=== PATIENT | female | born 1950 | race Caucasian/White ===

== ENCOUNTER 2017-04-23 10:38 | Inpatient (IN) | payer OTHER ==
[~2017-04-23] VITALS: Ht 149.9 cm; Wt 56.0 kg
[~2017-04-23 10:38] MED LIST: ERGO1CAP35 PO; FLNIN NAE; FLUO20CA35 PO; IBUP-103 PO; MAGNSUS5 PO; OMEP40CA PO; ONDA4TAB46 PO; PRM/45 PO; SENN-65 PO; SUCR5SUS PO
[2017-04-23] MEDS ORDERED: SODIUM CHLORIDE 0.9% 1000ML 1,000 ML IV SCH ×2 (10:56→13:31)
--- NOTE | 2017-04-23 11:26 | EMERGENCY ROOM VISIT NOTE ---
History Report prepared by Rafi: Marquise Guillen Under the Supervision of: Dr. Siva Dutta M.D. First contact with patient: 10:52 Chief Complaint: STROKE SYMPTOMS Stated Complaint: LEFT ARM NUMB, DIZZY, TROUBLE W/EYES Nursing Triage Summary: pt reports she was at work this am at 0830 her fingers did not want to type anymore and started tingleing now left arm better but right hand is starting and right leg. pt reports she fell down steps. no loc and fell on to buttocks. pt speech in understandable History of Present Illness The patient is a 66 year old female who presents to the Emergency Room with complaints of improving neurologic symptoms beginning 2.5 hours ago. She states that her symptoms began while using her computer mouse at work. Her symptoms began with right arm weakness. The patient's symptoms include bilateral leg and arm tingling, lightheadedness, and bilateral ear ringing. She states that her right arm weakness has improved, and her tingling has resolved. Her ear ringing and lightheadedness has persisted. The patient denies any problems with speech, recent fevers, or headache. She states that she had a cup of coffee this morning without breakfast, which is normal for her. She notes that she felt "a little off-balance" yesterday and the day before, and had a headache at that time as well. She feels that her right leg may be weaker than her left leg currently. The patient states "my tongue feels thick in my mouth". She notes that she has been accidently taking a double dose of Wellbutrin, 600 mg, for the past three or four days. Source of History: patient Onset: 2.5 hours ago Position: arm (right) Quality: other (neurologic symptoms) Timing: other (improving) Associated Symptoms: No fevers, No headache Note: Additional symptoms include bilateral leg and arm tingling, lightheadedness, and bilateral ear ringing. She denies any problems with speech. Review of Systems See HPI for pertinent positives & negatives. A total of 10 systems reviewed and were otherwise negative. Past Medical & Surgical Medical Problems: (1) Cholecystectomy (2) Corneal transplant (3) Hysterectomy Family History No pertinent family history stated. Social History Smoking Status: Never Smoker Alcohol Use: occasionally Drug Use: none Marital Status: Housing Status: lives with family Occupation Status: employed Current/Historical Medications Scheduled Ergocalciferol (Vitamin D Cap), 50,000 INTER.UNIT PO WK Estrogens, Conjugated (Premarin), 0.45 MG PO 3XWK Fluoxetine (Prozac), 20 MG PO HS Omeprazole (Prilosec), 40 MG PO DAILY Sucralfate (Carafate), 1 GM PO BID Scheduled PRN Fluticasone Propionate (Flonase Nasal Cameron), 2 SPRAYS SATHYA DAILY PRN Ibuprofen Tab (Advil), 200-600 MG PO Q4H PRN Magnesium Hydroxide (Milk Of Magnesia), 30 ML PO HS PRN Ondansetron Hcl (Zofran), 4 MG PO Q6H PRN Senna/Docusate Sod (Senokot S), 2 TAB PO HS PRN Allergies Coded Allergies: Sulfa Drugs (Verified Adverse Reaction, Mild, NAUSEA, 01/28/13) Physical Exam Vital Signs Date Time Temp Pulse Resp B/P (MAP) Pulse Ox O2 Delivery O2 Flow Rate FiO2 04/23/17 10:57 95 04/23/17 10:41 36.7 94 18 152/88 92 Room Air Physical Exam GENERAL: Patient is in no acute distress. HEENT: No acute trauma, normocephalic atraumatic, mucous membranes moist, no nasal congestion, no scleral icterus. NECK: No stridor, no adenopathy, no meningismus, trachea is midline. LUNGS: Clear to auscultation bilaterally, no wheeze, no rhonchi, breath sounds equal. HEART: Without murmurs gallops or rubs, regular rate and rhythm. ABDOMEN: Soft, nontender, bowel sounds positive, no hernias, no peritonitis. EXTREMITIES: No cyanosis or edema, full range of motion of all the joints without pain or difficulty, no signs for acute trauma. NEUROLOGIC: Awake and alert. Oriented x3. No speech slur or facial droop. No cerebellar deficits or pronator drift. SKIN: No rash, no jaundice, no diaphoresis. Medical Decision & Procedures ER Provider Diagnostic Interpretation: CT results as stated below per my review and radiologist interpretation: CT HEAD WITHOUT CONTRAST (CT) FINDINGS: No intra or extra-axial mass lesions are visualized. There is no CT evidence of acute cortical infarction. There is no evidence of midline shift. There is no acute hemorrhage. No calvarial fractures are visualized. There are minimal white matter hypodensities likely on a small vessel basis. There is no evidence of pathologic ventricular dilatation. There is no evidence of acute sinusitis IMPRESSION: No acute intracranial findings Electronically signed by: Harry Ontiveros M.D. Laboratory Results 04/23/17 11:18 Red Blood Count 4.74, Mean Corpuscular Volume 88.2, Mean Corpuscular Hemoglobin 28.9, Mean Corpuscular Hemoglobin Concent 32.8, Mean Platelet Volume 9.8, Neutrophils (%) (Auto) 57.9, Lymphocytes (%) (Auto) 31.6, Monocytes (%) (Auto) 7.6, Eosinophils (%) (Auto) 2.2, Basophils (%) (Auto) 0.6, Neutrophils # (Auto) 3.87, Lymphocytes # (Auto) 2.12, Monocytes # (Auto) 0.51, Eosinophils # (Auto) 0.15, Basophils # (Auto) 0.04 04/23/17 11:18 Test 04/23/17 11:18 White Blood Count 6.70 K/uL (4.8-10.8) Red Blood Count 4.74 M/uL (4.2-5.4) Hemoglobin 13.7 g/dL (12.0-16.0) Hematocrit 41.8 % (37-47) Mean Corpuscular Volume 88.2 fL (80-100) Mean Corpuscular Hemoglobin 28.9 pg (25-34) Mean Corpuscular Hemoglobin Concent 32.8 g/dl (32-36) Platelet Count 543 K/uL (130-400) Mean Platelet Volume 9.8 fL (7.4-10.4) Neutrophils (%) (Auto) 57.9 % Lymphocytes (%) (Auto) 31.6 % Monocytes (%) (Auto) 7.6 % Eosinophils (%) (Auto) 2.2 % Basophils (%) (Auto) 0.6 % Neutrophils # (Auto) 3.87 K/uL (1.4-6.5) Lymphocytes # (Auto) 2.12 K/uL (1.2-3.4) Monocytes # (Auto) 0.51 K/uL (0.11-0.59) Eosinophils # (Auto) 0.15 K/uL (0-0.5) Basophils # (Auto) 0.04 K/uL (0-0.2) RDW Standard Deviation 43.5 fL (36.4-46.3) RDW Coefficient of Variation 13.5 % (11.5-14.5) Immature Granulocyte % (Auto) 0.1 % Immature Granulocyte # (Auto) 0.01 K/uL (0.00-0.02) Prothrombin Time 10.7 SECONDS (9.0-12.0) Prothromb Time International Ratio 1.0 (0.9-1.1) Activated Partial Thromboplast Time 25.4 SECONDS (21.0-31.0) Partial Thromboplastin Ratio 1.0 Anion Gap 6.0 mmol/L (3-11) Est Creatinine Clear Calc Drug Dose 42.1 ml/min Estimated GFR () 70.4 Estimated GFR (Non- 60.8 BUN/Creatinine Ratio 16.8 (10-20) Calcium Level 9.3 mg/dl (8.5-10.1) Magnesium Level 2.1 mg/dl (1.8-2.4) Total Bilirubin 0.4 mg/dl (0.2-1) Direct Bilirubin 0.1 mg/dl (0-0.2) Aspartate Amino Transf (AST/SGOT) 16 U/L (15-37) Alanine Aminotransferase (ALT/SGPT) 25 U/L (12-78) Alkaline Phosphatase 61 U/L (45-117) Total Creatine Kinase 98 U/L (26-192) Creatine Kinase MB 0.8 ng/ml (0.5-3.6) Creatine Kinase MB Ratio 0.8 (0-3.0) Troponin I < 0.015 ng/ml (0-0.045) Total Protein 7.3 gm/dl (6.4-8.2) Albumin 3.9 gm/dl (3.4-5.0) Thyroid Stimulating Hormone (TSH) 2.810 uIu/ml (0.300-4.500) Laboratory results reviewed by me. Medications Administered Medications (Trade) Dose Ordered Sig/Inez Route Start Time Stop Time Status Last Admin Dose Admin Sodium Chloride 1,000 ml @ 50 mls/hr Q20H IV 04/23/17 10:56 05/23/17 10:55 04/23/17 12:00 50 MLS/HR ECG Indication: other (neurologic symptoms) Rate (beats per minute): 85 Rhythm: normal sinus Findings: no acute ischemic change, no ectopy ED Course 1053: The patient was evaluated in room C6. A complete history and physical exam was performed. 1056: Ordered Sodium Chloride 1000 ml @ 50 mls/hr IV. 1205: Upon reexamination the patient is resting comfortably. I discussed results and treatment plan with the patient. She verbalizes agreement and understanding. The patient will be evaluated for further management. Medical Decision The patient is a 66 year old female who presents to the ED with complaints of neurologic symptoms. Differential diagnoses considered include: TIA, CVA, intracranial bleeding, medication reaction, electrolyte imbalance, anemia, and infection. Blood pressure screening: Patient was found to have a slightly elevated blood pressure due to circumstances. I do not believe that the patient requires hypertension monitoring. Medication Reconciliation: I attest that I have personally reviewed the patient' s current medication list. There is no leukocytosis or concerning anemia. No significant electrolyte abnormality, kidney failure or hepatitis. The patient appears to be in a euthyroid state. Brain CT shows no acute bleed or mass effect. EKG shows a normal sinus rhythm, no acute ischemia. Cardiac enzyme testing times one is not consistent with acute cardiac injury. On exam, the patient did not have any focal neurologic deficits. The patient presents with strokelike symptoms. She is not a candidate for TPA at his her symptoms have been ongoing since possibly this weekend. She actually may be having a reaction to her accidental increase in Wellbutrin. The patient will be staying in the hospital for further workup. I spoke with the patient and case management. The on-call hospitalist was consulted. Consults Time Called: 1202 Consulting Physician: Dr. Mukul Starks Returned Call: [phone] Discussed the patient's case. The patient will be evaluated for further management. Impression Primary Impression: Stroke-like symptoms Scribe Attestation The scribe's documentation has been prepared under my direction and personally reviewed by me in its entirety. I confirm that the note above accurately reflects all work, treatment, procedures, and medical decision making performed by me. Departure Information Dispostion Being Evaluated By Hospitalist Referrals No Doctor, Assigned (PCP) Patient Instructions My [facility] Stroke History Time Last Known Well 3 days ago Stroke t-PA Criteria Reviewed Does NOT meet criteria for t-PA Reason t-PA Not Given Contraindicated
[2017-04-23 11:31] LABS: BASO % 0.6 %; BASO ABS # 0.04 K/uL (0-0.2); COMPLETE YES; EOS % 2.2 %; HEMATOCRIT 41.8 % (37-47); IG% 0.1 %; LYMPH % 31.6 %; LYMPH ABS # 2.12 K/uL (1.2-3.4); MEAN CELL VOLUME 88.2 fL (80-100); MEAN CORPUSCULAR HEMOGLOBIN 28.9 pg (25-34); MEAN CORPUSCULAR HGB CONC 32.8 g/dl (32-36); MEAN PLATELET VOLUME 9.8 fL (7.4-10.4); MONO % 7.6 %; NEUT % 57.9 %; PLATELET COUNT 543 K/uL (130-400); RED BLOOD COUNT 4.74 M/uL (4.2-5.4)
[2017-04-23 11:39] LABS: PROTHROMBIN TIME (PATIENT) 10.7 SECONDS (9.0-12.0)
[2017-04-23 11:48] LABS: ALT/SGPT 25 U/L (12-78); BLOOD UREA NITROGEN 16 mg/dl (7-18); BUN/CREATININE RATIO 16.8 (10-20); CALCIUM 9.3 mg/dl (8.5-10.1); CARBON DIOXIDE 27 mmol/L (21-32); CHLORIDE 105 mmol/L (98-107); CREATININE 0.96 mg/dl (0.60-1.20); GLUCOSE 95 mg/dl (70-99); MAGNESIUM 2.1 mg/dl (1.8-2.4); POTASSIUM 4.2 mmol/L (3.5-5.1); SODIUM 138 mmol/L (136-145)
--- NOTE | 2017-04-23 11:53 | DIAGNOSTIC IMAGING REPORT ---
CT HEAD WITHOUT CONTRAST (CT) CLINICAL HISTORY: Stroke LEFT ARM NUMBNESS. DIZZINESS. COMPARISON STUDY: No previous studies for comparison. TECHNIQUE: Axial CT of the brain is performed from the vertex to the skull base. IV contrast was not administered for this examination. CT DOSE: 679.75 mGycm FINDINGS: No intra or extra-axial mass lesions are visualized. There is no CT evidence of acute cortical infarction. There is no evidence of midline shift. There is no acute hemorrhage. No calvarial fractures are visualized. There are minimal white matter hypodensities likely on a small vessel basis. There is no evidence of pathologic ventricular dilatation. There is no evidence of acute sinusitis IMPRESSION: No acute intracranial findings Electronically signed by: Harry Ontiveros M.D. 04/23/2017 11:52 AM Dictated Date/Time: 04/23/2017 11:51 AM
[2017-04-23 12:00] LABS: ALKALINE PHOSPHATASE 61 U/L (45-117); AST/SGOT 16 U/L (15-37); CKMB/CK RATIO 0.8 (0-3.0)
[2017-04-23] MEDS ORDERED: IV FLUIDS COMPLETED PRN (12:45)
[2017-04-23] MEDS ORDERED: ERGO500037 PO (13:29)
[2017-04-23] MEDS ORDERED: FLUO40CA8 PO (13:29)
[2017-04-23] MEDS ORDERED: FLUT0.15 NAE (13:29)
[2017-04-23] MEDS ORDERED: BUPRTAB51 PO (13:29)
[2017-04-23] MEDS ORDERED: SUCR1TAB29 PO (13:29)
[2017-04-23] MEDS ORDERED: PRM/45 PO (13:29)
[2017-04-23] MEDS ORDERED: MISCCAP80 PO (13:29)
[2017-04-23] MEDS ORDERED: CYCL0.052 OP (13:29)
[2017-04-23] MEDS ORDERED: ACETAMINOPHEN 325 MG TAB PO PRN (13:30)
[2017-04-23] MEDS ORDERED: ONDANSETRON INJ 2 MG/ML 2 ML VIAL IV PRN (13:30)
[2017-04-23] MEDS ORDERED: ASPIRIN 81 MG ECTAB PO ONE ×2 (13:31→14:45)
[2017-04-23] MEDS ORDERED: PHARMACIST DISCHARGE MED REC CONSULT PRN (13:45)
[2017-04-23] MEDS ORDERED: LORAZEPAM 2 MG/ML 1 ML VIAL IV PRN (13:45)
[2017-04-23 13:49] VITALS: BP 152/88; TEMP 36.7; Ht 149.9 cm; Wt 56.0 kg
[2017-04-23] MEDS ORDERED: ZOLPIDEM TARTRATE 5 MG TAB PO PRN (14:00)
[2017-04-23 14:14] VITALS: BP 149/93; PULSE 82; TEMP 36.6; O2SAT 98
[2017-04-23] MEDS ORDERED: PNEUMOCOCCAL POLYSACCHARIDES 25 MCG/0.5 ML VIAL/SYR IM. ONE (14:30)
[2017-04-23] MEDS ORDERED: PNEUMOCOCCAL ADMINISTRATION CHARGE ONE (14:30)
--- NOTE | 2017-04-23 14:35 | History and Physical ---
History & Physical Date & Time of Service: Apr 23, 2017 at 14:10 Chief Complaint: Right Arm Numb, Dizzy, Trouble W/Eyes Primary Care Physician: Ligia Del Cid D.O. History of Present Illness Source: patient, friend This is a 66yo F with a PMH of HLD, depression and vitamin D deficiency who presented to the ED with numbness, tingling and weakness in her R arm. Symptoms began while she was at work this AM around 0800 when typing at her desk When she got up to use the restroom, she noticed a similar sensation of numbness/ tinging in both of her legs below the knee but was still able to ambulate. Around this time, she also noticed a "dizziness" while walking as well as bilateral ringing of the ears and a "thickness of the tongue" that made it difficult to swallow. Of note, she states that she began experiencing difficulty "walking in a straight line" earlier this week, at which time she was also experiencing a 3-day headache. All other symptoms started this morning. By the time she was seen in the ED, all symptoms had resolved with the exception of intermittent numbness/tinging and a feeling of weakness in her R arm. No PMH of CVA, heart disease or migraines. Denies any confusion, headache , LOC, seizure, syncopal episodes, loss of balance, speech problems, visual disturbance, tinnitus, CP, dyspnea or nausea/vomiting at this time. Patient notes that she has been experiencing intermittent episodes of diarrhea for the past 2 weeks that are associated with a few minutes of lower abdominal pain. She also has been taking a double dose of Wellbutrin (600mg/day) for the past 4 days by mistake. Past Medical/Surgical History Medical Problems: (1) Depression Status: Chronic (2) Dyslipidemia Status: Chronic Surgical Problems: (1) H/O oral surgery Permanent Comment: for lymph gland excision Status: Chronic (2) History of corneal transplant Status: Chronic (3) History of hysterectomy Status: Chronic (4) S/P cholecystectomy Status: Chronic Family History Cardiac disorder FATHER FH: cancer SISTER (cervical) MOTHER (bladder) BROTHER (non hodgkins lymphoma) FH: migraine headache SISTER FH: thyroid disease SISTER Social History Smoking Status: Light Tobacco Smoker (has 1 cigarette every night) Smokeless Tobacco Use: No Alcohol Use: occasionally (1 glass of wine a week) Drug Use: none Marital Status: Occupational Status: employed Immunizations History of Influenza Vaccine: Unknown History of Tetanus Vaccine?: Unknown History of Pneumococcal: Unknown History of Hepatitis B Vaccine: Unknown Multi-Drug Resistant Organisms History of MDRO: No Allergies Coded Allergies: Sulfa Drugs (Verified Adverse Reaction, Mild, NAUSEA, 01/28/13) Home Medications Scheduled Bupropion (Wellbutrin-Xl), 300 MG PO DAILY Cyclosporine (Ophth) (Restasis), 1 DROP OP Q12 Ergocalciferol (Vitamin D 86034 Unit), 50,000 UNIT PO WK Estrogens, Conjugated (Premarin), 0.45 MG PO DAILY Fluoxetine (Prozac), 40 MG PO DAILY Fluticasone Propionate (Nasal) (Flonase Allergy Relief), 2 SPRAYS SATHYA DAILY Probiotic Product (Probiotic), 1 CAP PO TIDM Sucralfate (Carafate), 1 GM PO ACHS Review of Systems ROS per HPI. Physical Exam Vital Signs Date Time Temp Pulse Resp B/P (MAP) Pulse Ox O2 Delivery O2 Flow Rate FiO2 04/23/17 13:52 77 18 146/78 98 04/23/17 13:49 36.7 18 152/88 Room Air 04/23/17 10:57 95 04/23/17 10:41 36.7 94 18 152/88 92 Room Air General Appearance: WD/WN, no apparent distress Head: normocephalic Eyes: PERRL, EOMI ENT: normal ENT inspection Neck: supple, thyroid normal Respiratory/Chest: chest non-tender, lungs clear, normal breath sounds, no respiratory distress, no accessory muscle use Cardiovascular: regular rate, rhythm, normal peripheral pulses Abdomen/GI: normal bowel sounds, soft, + tenderness (Moderate TTP in LLQ ) Back: normal inspection Extremities/Musculoskelatal: normal inspection, normal range of motion 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 ) Skin: normal color, warm/dry Lymphatic: no adenopathy Diagnostics Laboratory Results Results Past 24 Hours Test 04/23/17 11:18 04/23/17 13:31 04/23/17 13:33 04/23/17 13:56 Range/Units White Blood Count 6.70 4.8-10.8 K/uL Red Blood Count 4.74 4.2-5.4 M/uL Hemoglobin 13.7 12.0-16.0 g/dL Hematocrit 41.8 37-47 % Mean Corpuscular Volume 88.2 80-100 fL Mean Corpuscular Hemoglobin 28.9 25-34 pg Mean Corpuscular Hemoglobin Concent 32.8 32-36 g/dl Platelet Count 543 130-400 K/uL Mean Platelet Volume 9.8 7.4-10.4 fL Neutrophils (%) (Auto) 57.9 % Lymphocytes (%) (Auto) 31.6 % Monocytes (%) (Auto) 7.6 % Eosinophils (%) (Auto) 2.2 % Basophils (%) (Auto) 0.6 % Neutrophils # (Auto) 3.87 1.4-6.5 K/uL Lymphocytes # (Auto) 2.12 1.2-3.4 K/uL Monocytes # (Auto) 0.51 0.11-0.59 K/uL Eosinophils # (Auto) 0.15 0-0.5 K/uL Basophils # (Auto) 0.04 0-0.2 K/uL RDW Standard Deviation 43.5 36.4-46.3 fL RDW Coefficient of Variation 13.5 11.5-14.5 % Immature Granulocyte % (Auto) 0.1 % Immature Granulocyte # (Auto) 0.01 0.00-0.02 K/uL Prothrombin Time 10.7 9.0-12.0 SECONDS Prothromb Time International Ratio 1.0 0.9-1.1 Activated Partial Thromboplast Time 25.4 21.0-31.0 SECONDS Partial Thromboplastin Ratio 1.0 Sodium Level 138 136-145 mmol/L Potassium Level 4.2 3.5-5.1 mmol/L Chloride Level 105 98-107 mmol/L Carbon Dioxide Level 27 21-32 mmol/L Anion Gap 6.0 3-11 mmol/L Blood Urea Nitrogen 16 7-18 mg/dl Creatinine 0.96 0.60-1.20 mg/dl Est Creatinine Clear Calc Drug Dose 42.1 ml/min Estimated GFR () 70.4 Estimated GFR (Non- 60.8 BUN/Creatinine Ratio 16.8 10-20 Random Glucose 95 70-99 mg/dl Calcium Level 9.3 8.5-10.1 mg/dl Magnesium Level 2.1 1.8-2.4 mg/dl Total Bilirubin 0.4 0.2-1 mg/dl Direct Bilirubin 0.1 0-0.2 mg/dl Aspartate Amino Transf (AST/SGOT) 16 15-37 U/L Alanine Aminotransferase (ALT/SGPT) 25 12-78 U/L Alkaline Phosphatase 61 45-117 U/L Total Creatine Kinase 98 26-192 U/L Creatine Kinase MB 0.8 0.5-3.6 ng/ml Creatine Kinase MB Ratio 0.8 0-3.0 Troponin I < 0.015 0-0.045 ng/ml Total Protein 7.3 6.4-8.2 gm/dl Albumin 3.9 3.4-5.0 gm/dl Thyroid Stimulating Hormone (TSH) 2.810 0.300-4.500 uIu/ml Test 04/23/17 14:09 Range/Units Diagnostic Radiology CT HEAD WITHOUT CONTRAST (CT) (04/23/17): No intra or extra-axial mass lesions are visualized. There is no CT evidence of acute cortical infarction. There is no evidence of midline shift. There is no acute hemorrhage. No calvarial fractures are visualized. There are minimal white matter hypodensities likely on a small vessel basis. There is no evidence of pathologic ventricular dilatation. There is no evidence of acute sinusitis Normal EKG Impression Assessment and Plan Pt is a 66yo F with a PMH of HLD, depression and vitamin D deficiency who presents with stroke-like symptoms. Stroke-like symptoms: -Slight R drooping of the mouth noted on exam but all other CN function intact -Endorses numbness, tingling and weakness of R arm and bilateral legs however, on exam, sensation & motor function intact as well as full MOMO of both upper & lower extremities -CT head without any acute abnormalities, normal ECG, all labwork wnl -Only risk factors are HLD (denies statin therapy) and mild tobacco use (1 cigarette each night) -will continue with a stroke rule-out despite diagnostics & labwork all wnl -ordered MRI brain without contrast, MRA head and neck without contrast, Echo with bubble study -started on ASA 81mg qAM -ordered hgb a1c and fasting lipid panel for tomorrow AM. Will start statin therapy if indicated -PT/OT/speech consults ordered Numbness in R arm/legs: -Seems to be intermittent on exam and improves with movement -Thyroid levels are normal -Ordered a B12 level to r/o deficiency Accidental doubling of Wellbutrin: -Endorses 4 days of taking 600mg daily instead of 300mg -Does not seem to exhibit any signs/symptoms of wellbutrin overdose (confusion, tremor, seizures, prolonged QTc) -Will return to normal wellbutrin dose Depression: stable -continue home meds Vit D deficiency: -continue home meds VTA ppx: Lovenox Inj 40mg daily Code status: FULL Dispo: pending Level of Care Telemetry Advanced Directives Existing Living Will: No Existing Power of Warp Tester: No Resuscitation Status FULL RESUSCITATION VTE Prophylaxis VTE Risk Assessment Done? Y/N: Yes Risk Level: Moderate Given or contraindicated: Enoxaparin (Lovenox)SQ
[2017-04-23 14:55] LABS: URINE APPEARANCE CLEAR (CLEAR); URINE BILIRUBIN NEG (NEG); URINE COLOR YELLOW; URINE NITRITE NEG (NEG); URINE SPECIFIC GRAVITY 1.012 (1.000-1.030); UROBILINOGEN NEG (NEG); ZZUR CULT IF INDIC CLEAN CATCH YES
[2017-04-23 15:05] LABS: MANUAL MICROSCOPIC REQUIRED? NO; REVIEW REQ? NO
--- NOTE | 2017-04-23 15:07 | History and Physical ---
History & Physical Date of Service Apr 23, 2017. History & Physical This is a 66 year old female with a PMH of HLD, depression/anxiety presents with vague symptoms, including lightheadedness - states that for the past week she felt lightheaded and has been drifting to one side while ambulating. She noticed this intermittently but thought she was doing it because of the lightheaded feeling. She woke up at around 8AM and states that she felt numbness /tingling in her arms, and felt it more on the R hand. She became worried and presented to the ER. Currently, numbness/tingling is intermittent and in both hands. Denies slurring of speech. She states that her dose of Wellbutrin was recently changed from 150mg to 300mg daily - she was accidentally taking 600mg for the past four days. VITALS: Last Vital Signs Documentation Date Time Temp Pulse Resp B/P (MAP) Pulse Ox O2 Delivery O2 Flow Rate FiO2 04/23/17 14:14 36.6 82 18 149/93 (111) 98 Room Air GEN: no acute distress HEENT: mild asymmetry noted; R sided slightly lower than L CVS: +S1, S2, RRR LUNGS: CTA b/l, no wheezing ABD: soft, NT/ND EXT: no edema NEURO: CN II-XII grossly intact Numbness/Tingling unlikely CVA, Head CT negative will check a Brain MRI, MRA of head/neck TSH wnl check B12 check an echo monitor in tele check fasting lipid panel and Ha1c for risk stratification started on aspirin 81mg and should continue this for CV prevention will likely need a statin, check lipid panel in AM may need outpatient neuro evaluation for EMG, NCV; possibly C-spine imaging Depression/Anxiety patient accidentally taking Wellbutrin 600mg x4 days will go back to Prozac and Wellbutrin 300mg daily EKG checked, no prolonged QT her symptoms of lightheadedness and dizziness possibly related to overdose DVT ppx Lovenox FULL CODE
[2017-04-23 15:16] LABS: ESTIMATED AVERAGE GLUCOSE 114 mg/dl; HA1C FLAG Normal (Normal)
[2017-04-23 16:00] VITALS: O2SAT 98
[2017-04-23] MEDS ORDERED: ENOXAPARIN 40 MG/0.4 ML SYR SC SCH (16:00)
[2017-04-23] MEDS: SUCRALFATE 1 GM TAB PO SCH ×2 (16:50→22:02)
[2017-04-23 17:01] VITALS: BP 131/80; PULSE 92; TEMP 36.5; O2SAT 98
--- NOTE | 2017-04-23 17:21 | ECHOCARDIOGRAM REPORT ---
*NOTICE TO RECEIVING REPUBLICAN AGENCY This information is strictly Confidential and protected under [place] law. [place] law prohibits you from making any further disclosure of this information unless further disclosure is expressly permitted by the written consent of the person to whom it pertains or is authorized by law. A general authorization for the release of medical or other information is not sufficient for this purpose. Hospital accepts no responsibility if the information is made available to any other person, INCLUDING THE PATIENT. Interpretation Summary * Name: KIAN HASSAN Study Date: 04/23/2017 02:40 PM * Patient Location: [facility]\S\E219\S\1 * : 1950 (M/d/yyyy) Gender: Female Height: 59 in * Age: 66 yrs Ethnicity: [place] Weight: 119 lb * Ordering Physician: Korin Ortez * Referring Physician: Self, Referred * Performed By: Obed Reynolds RCS * * Reason For Study: Stroke * BSA: 1.5 m2 * The study was technically adequate. * There is no comparison study available. * -- Conclusions -- * Ejection Fraction = 60-65%. * The left ventricular wall motion is normal. * Grade I diastolic dysfunction, (abnormal relaxation pattern). * The right ventricle is normal size. * There is mild right ventricular hypertrophy. * The right ventricular systolic function is normal as assessed by tricuspid annular plane systolic excursion (TAPSE) (normal >1.5 cm). * Injection of contrast documented no interatrial shunt. * No significant valvular pathology. Procedure Details * A complete two-dimensional transthoracic echocardiogram was performed (2D, M-mode, Doppler and color flow Doppler). Left Ventricle * The left ventricle is normal in size. * There is no thrombus. * There is normal left ventricular wall thickness. * Ejection Fraction = 60-65%. * Left ventricular systolic function is normal. * The left ventricular wall motion is normal. Right Ventricle * The right ventricle is normal size. * There is mild right ventricular hypertrophy. * The right ventricular systolic function is normal as assessed by tricuspid annular plane systolic excursion (TAPSE) (normal >1.5 cm). Atria * The left atrial size is normal. * Right atrial size is normal. * There is no evidence of atrial septal defect, but resolution does not allow assessment for a patent foramen ovale. * Injection of contrast documented no interatrial shunt. Mitral Valve * The mitral valve is normal. * There is no mitral valve stenosis. * Significant mitral regurgitation is absent. Tricuspid Valve * The tricuspid valve is normal. * There is no tricuspid stenosis. * There is trace tricuspid regurgitation. Aortic Valve * The aortic valve is not well visualized. * Aortic stenosis is absent. * There is no significant aortic regurgitation. Pulmonic Valve * The pulmonary valve is not well seen, but the Doppler examination is normal without significant regurgitation or stenosis. Great Vessels * The aortic root is normal size. Pericardium/Pleural * There is no pericardial effusion. Great Vessels * Normal inferior vena cava diameter and respiratory variation suggests normal central venous pressure. Left Ventricular Diastolic Function * Grade I diastolic dysfunction, (abnormal relaxation pattern). MMode 2D Measurements and Calculations IVSd 0.84 cm LVIDd 4.1 cm LVIDs 2.6 cm LVPWd 0.85 cm IVS/LVPW 0.99 FS 36.5 % EDV(Teich) 76.3 ml ESV(Teich) 25.4 ml EF(Teich) 66.7 % EDV(cubed) 71.3 ml ESV(cubed) 18.3 ml EF(cubed) 74.4 % LV mass(C)d 106.3 grams LV mass(C)dI 71.8 grams/m\S\2 SV(Teich) 50.8 ml SI(Teich) 34.4 ml/m\S\2 SV(cubed) 53.0 ml SI(cubed) 35.9 ml/m\S\2 LVAd ap4 18.6 cm\S\2 LVLd ap4 7.3 cm EDV(MOD-sp4) 40.8 ml EDV(sp4-el) 40.3 ml LVAs ap4 9.5 cm\S\2 LVLs ap4 5.7 cm ESV(MOD-sp4) 13.7 ml ESV(sp4-el) 13.4 ml EF(MOD-sp4) 66.5 % EF(sp4-el) 66.8 % LVAd ap2 19.0 cm\S\2 LVLd ap2 6.5 cm EDV(MOD-sp2) 47.3 ml EDV(sp2-el) 47.2 ml LVAs ap2 10.0 cm\S\2 LVLs ap2 5.8 cm ESV(MOD-sp2) 15.0 ml ESV(sp2-el) 14.8 ml EF(MOD-sp2) 68.2 % EF(sp2-el) 68.6 % LVLd %diff -11.16 % EDV(MOD-bp) 45.9 ml LVLs %diff 0.48 % ESV(MOD-bp) 14.4 ml EF(MOD-bp) 68.6 % SV(MOD-sp4) 27.2 ml SI(MOD-sp4) 18.4 ml/m\S\2 SV(MOD-sp2) 32.2 ml SI(MOD-sp2) 21.8 ml/m\S\2 SV(MOD-bp) 31.5 ml SI(MOD-bp) 21.3 ml/m\S\2 SV(sp4-el) 27.0 ml SI(sp4-el) 18.2 ml/m\S\2 SV(sp2-el) 32.3 ml SI(sp2-el) 21.9 ml/m\S\2 Doppler Measurements and Calculations MV E max sara 72.7 cm/sec MV A max sara 106.1 cm/sec MV E/A 0.69 MV dec time 0.06 sec Ao V2 max 122.0 cm/sec Ao max PG 5.9 mmHg Ao max PG (full) 3.1 mmHg LV V1 max PG 2.8 mmHg LV V1 max 83.7 cm/sec
[2017-04-23 19:54] VITALS: BP 126/81; PULSE 86; TEMP 36.7; O2SAT 96
[2017-04-23 20:00] VITALS: O2SAT 96
[2017-04-23] MEDS ORDERED: LORAZEPAM 2 MG/ML 1 ML VIAL ONE (22:13)
[2017-04-24] VITALS (8 sets, daily range): BP systolic 110–131; BP diastolic 70–84; PULSE 88–100; TEMP 36.6–36.8; O2SAT 96–97
[2017-04-24] MEDS ORDERED: GADAVIST IV PRN
[2017-04-24 06:26] LABS: BASO % 0.5 %; BASO ABS # 0.03 K/uL (0-0.2); COMPLETE YES; EOS % 3.1 %; HEMATOCRIT 34.9 % (37-47); IG% 0.3 %; LYMPH % 30.3 %; LYMPH ABS # 1.88 K/uL (1.2-3.4); MEAN CELL VOLUME 88.6 fL (80-100); MEAN CORPUSCULAR HEMOGLOBIN 29.7 pg (25-34); MEAN CORPUSCULAR HGB CONC 33.5 g/dl (32-36); MEAN PLATELET VOLUME 9.8 fL (7.4-10.4); NEUT % 55.8 %; PLATELET COUNT 446 K/uL (130-400); RED BLOOD COUNT 3.94 M/uL (4.2-5.4)
--- NOTE | 2017-04-24 06:48 | DIAGNOSTIC IMAGING REPORT ---
MRA NECK COMBO HISTORY: Mental status change Stroke TECHNIQUE: [id number] and gadolinium-enhanced MRA of the neck was performed both before and after the intravenous administration of contrast. All measurements were calculated based on NASCET criteria. COMPARISON STUDY: None. FINDINGS: The aortic arch and proximal great vessels are widely patent. There is no significant stenosis, occlusion, or dissection identified within the bilateral common carotid, internal carotid, or vertebral arteries. Mild plaque formation bilaterally. Motion artifact partially degrading image quality IMPRESSION: No significant stenosis, occlusion, or dissection identified within the carotid or vertebral arteries. Mild plaque formation The above report was generated using voice recognition software. It may contain grammatical, syntax or spelling errors. Electronically signed by: Xiang Stone M.D. 04/24/2017 6:47 AM Dictated Date/Time: 04/24/2017 6:45 AM
--- NOTE | 2017-04-24 06:51 | DIAGNOSTIC IMAGING REPORT ---
MRA HEAD WITHOUT CONTRAST CLINICAL HISTORY: 66 years-old Female presenting with Stroke - Attention to [facility]. TECHNIQUE: MR angiography of the head was performed without use of intravenous contrast using a 3-D [id number] technique. 3-D volumetric tumble views were subsequently created for review. IV contrast: None. COMPARISON: Correlation made with MRI of the brain performed simultaneously. FINDINGS: In the anterior circulation, bilateral intracranial portions of the internal carotid arteries are patent. Anterior and middle cerebral arteries patent. Evaluation for stenoses slightly limited due to motion artifact. Anterior communicating artery patent. Posterior communicating arteries not visible. In the posterior circulation, predominance of the vertebral arteries. Vertebrobasilar system patent as is the superior cerebellar and posterior cerebral arteries. No evidence of significant stenosis, aneurysm, or vessel occlusion within limitations of motion artifact. IMPRESSION: 1. No evidence of significant stenosis, aneurysm, or vessel occlusion within limitations of motion artifact. Electronically signed by: Ishan Eaton M.D. 04/24/2017 6:49 AM Dictated Date/Time: 04/24/2017 6:44 AM
[2017-04-24] MEDS: SUCRALFATE 1 GM TAB PO SCH ×2 (07:00→11:00)
[2017-04-24 07:01] LABS: BUN/CREATININE RATIO 14.9 (10-20); CALCIUM 8.1 mg/dl (8.5-10.1); CREATININE 0.9 mg/dl (0.60-1.20); POTASSIUM 3.8 mmol/L (3.5-5.1)
[2017-04-24 07:02] LABS: CHOLESTEROL/HDL RATIO 4.4
--- NOTE | 2017-04-24 07:37 | DIAGNOSTIC IMAGING REPORT ---
BRAIN WITHOUT CONTRAST HISTORY: 66 years Female acute strokelike symptoms with right arm numbness and blurred vision. History of prior corneal transplants. COMPARISON: CT head 04/23/2017 TECHNIQUE: Multiplanar multisequence MRI of the brain was obtained without contrast. FINDINGS: There is no restricted diffusion to suggest acute ischemia. Midline structures including the corpus callosum, brainstem, optic chiasm, pituitary gland and peroneal gland appear unremarkable the sagittal T1 series. There is no cerebellar tonsillar herniation. Uncovertebral spurring is seen within the imaged upper cervical spine. There is 3 mm anterolisthesis of C3 on C4 which may be on a degenerative basis as there is underlying facet arthropathy at this interspace, moderate on the left and mild on the right. No pathologic susceptibility artifact identified. There is no acute intracranial hemorrhage, midline shift, abnormal extra-axial collections, hydrocephalus or intracranial mass. No significant T-2/flair signal abnormality within the cerebral hemispheres. Flow-voids flow skull base appear to be within normal limits. There is a trace left mastoid effusion. Mild ethmoid sinus disease is present. Orbits appear symmetric. IMPRESSION: 1. No acute intracranial abnormality. No evidence of acute ischemia. 2. Incidental note is made of 3 mm anterolisthesis C3 on C4 which may be on a degenerative basis as there is underlying moderate left-sided facet arthropathy at this interspace. 3. Trace left mastoid effusion. The above report was generated using voice recognition software. It may contain grammatical, syntax or spelling errors. Electronically signed by: Franck Gaytan M.D. 04/24/2017 7:35 AM Dictated Date/Time: 04/24/2017 7:29 AM
[2017-04-24] MEDS ORDERED: FLUOXETINE HCL 20 MG CAP PO SCH (09:00)
[2017-04-24] MEDS ORDERED: ASPIRIN 81 MG ECTAB PO SCH (09:00)
[2017-04-24] MEDS ORDERED: BuPROPion XL 300 MG TABCR PO SCH (09:00)
[2017-04-24] MEDS ORDERED: NURSING VERBAL MED ORDER ONE (10:30)
--- NOTE | 2017-04-24 13:15 | Progress Note ---
Internal Med Progress Note Date of Service: Apr 24, 2017. Provider Documentation: SUBJECTIVE: Patient is feeling much better than on presentation. Dizziness/lightheadedness has improved. Ambulated well with PT though still has some mild lightheadedness. Intermittent numbness/tingling in both extremities present. No headaches, nausea, vomiting, localized weakness present OBJECTIVE: Vital Signs-as noted below Exam: GEN: no acute distress CVS: +S1, S2, RRR LUNGS: CTA b/l, no wheezing ABD: soft, NT/ND EXT: no edema NEURO: CN II-XII normal, Power 5/5 all extremities, Sensory normal b/l Lab data as noted below. ASSESSMENT & PLAN: Numbness/Tingling, Intermittent Likely secondary to C3-C4 degenerative changes noted co incidentally on MRI . Unlikely to be TIA or stroke -Work up- MRI Brain- No stroke, MRA Head/neck- no acute abnormalities/stenosis noted, TSH- Normal, Vitamin B12- normal; Echo- EF 60-65%, Gd I diastolic dysfunction, Mild RVH, No valvular pathology, Tele- no arrhythmias noted -No indication of starting ASA as clinically and on basis of history TIA unlikely, no cardiovascular risk factors present and MRI is negative for stroke -Follow up outpatient Dizziness Could be secondary to accidently taking Wellbutrin double dosing -600 mg x 4 days -Improved -Work up as above-negative Depression/Anxiety -Wellbutrin to be restarted from tomorrow at original dose 300 mg DVT ppx Lovenox FULL CODE DISPOSITION Okay to discharge home today Discussed results with patient/daughter Vital Signs: Date Time Temp Pulse Resp B/P (MAP) Pulse Ox O2 Delivery O2 Flow Rate FiO2 04/24/17 11:40 36.8 100 18 122/80 (94) 97 04/24/17 08:00 Room Air 04/24/17 07:51 36.8 88 18 126/81 (96) 96 Room Air 04/24/17 04:30 96 Room Air 04/24/17 03:21 36.6 94 19 110/70 (83) 97 Room Air 04/24/17 00:33 36.7 88 19 119/79 (92) 96 Room Air 04/24/17 00:30 96 Room Air 04/23/17 20:00 96 Room Air 04/23/17 19:54 36.7 86 20 126/81 (96) 96 Room Air 04/23/17 17:01 36.5 92 18 131/80 (97) 98 Room Air 04/23/17 16:00 98 Room Air 04/23/17 14:14 36.6 82 18 149/93 (111) 98 Room Air 04/23/17 13:52 77 18 146/78 98 04/23/17 13:49 36.7 18 152/88 Room Air Lab Results: Results Past 24 Hours Test 04/23/17 14:09 04/23/17 14:20 04/24/17 05:50 Range/Units Urine Color YELLOW Urine Appearance CLEAR CLEAR Urine pH 7.0 4.5-7.5 Urine Specific Bath 1.012 1.000-1.030 Urine Protein NEG NEG Urine Glucose (UA) NEG NEG Urine Ketones NEG NEG Urine Occult Blood 1+ NEG Urine Nitrite NEG NEG Urine Bilirubin NEG NEG Urine Urobilinogen NEG NEG Urine Leukocyte Esterase NEG NEG Urine WBC (Auto) 1-5 0-5 /hpf Urine RBC (Auto) 0-4 0-4 /hpf Urine Hyaline Casts (Auto) 1-5 0-5 /lpf Urine Epithelial Cells (Auto) 10-20 0-5 /lpf Urine Bacteria (Auto) 1+ NEG Vitamin B12 Level 871 211-911 pg/mL Hepatitis C Antibody Screen NEG NEG White Blood Count 6.20 4.8-10.8 K/uL Red Blood Count 3.94 4.2-5.4 M/uL Hemoglobin 11.7 12.0-16.0 g/dL Hematocrit 34.9 37-47 % Mean Corpuscular Volume 88.6 80-100 fL Mean Corpuscular Hemoglobin 29.7 25-34 pg Mean Corpuscular Hemoglobin Concent 33.5 32-36 g/dl Platelet Count 446 130-400 K/uL Mean Platelet Volume 9.8 7.4-10.4 fL Neutrophils (%) (Auto) 55.8 % Lymphocytes (%) (Auto) 30.3 % Monocytes (%) (Auto) 10.0 % Eosinophils (%) (Auto) 3.1 % Basophils (%) (Auto) 0.5 % Neutrophils # (Auto) 3.46 1.4-6.5 K/uL Lymphocytes # (Auto) 1.88 1.2-3.4 K/uL Monocytes # (Auto) 0.62 0.11-0.59 K/uL Eosinophils # (Auto) 0.19 0-0.5 K/uL Basophils # (Auto) 0.03 0-0.2 K/uL RDW Standard Deviation 43.6 36.4-46.3 fL RDW Coefficient of Variation 13.3 11.5-14.5 % Immature Granulocyte % (Auto) 0.3 % Immature Granulocyte # (Auto) 0.02 0.00-0.02 K/uL Sodium Level 142 136-145 mmol/L Potassium Level 3.8 3.5-5.1 mmol/L Chloride Level 111 98-107 mmol/L Carbon Dioxide Level 25 21-32 mmol/L Anion Gap 6.0 3-11 mmol/L Blood Urea Nitrogen 13 7-18 mg/dl Creatinine 0.90 0.60-1.20 mg/dl Est Creatinine Clear Calc Drug Dose 45.7 ml/min Estimated GFR () 76.1 Estimated GFR (Non- 65.7 BUN/Creatinine Ratio 14.9 10-20 Random Glucose 86 70-99 mg/dl Calcium Level 8.1 8.5-10.1 mg/dl Triglycerides Level 273 0-150 mg/dl Cholesterol Level 210 0-200 mg/dl HDL Cholesterol 48 mg/dl LDL Cholesterol, Calculated 107 mg/dl VLDL Cholesterol, Calculated 55 mg/dl Cholesterol/HDL Ratio 4.4 Microbiology Results 04/23/17 Urine Culture - Preliminary, Resulted NO GROWTH - LESS THAN 1,000 COLONIES/...
--- NOTE | 2017-04-24 13:19 | Discharge Summary ---
Discharge Summary Date of Service Apr 24, 2017. Discharge Summary Admission Date: Apr 23, 2017 at 18:52 Discharge Date: Apr 24, 2017 Discharge Disposition: Home Principal Diagnosis: 1. Intermittent numbness/tingling in upper extremities, likely secondary to C3- C4 arthropathy 2. Dizziness, likely secondary to medication side effect Secondary Diagnoses/Problems: 1. Depression/Anxiety Procedures: Tele monitoring MRI brain MRA Head/neck Echocardiogram IV Fluids PT Consultations: None Pending Studies/Follow-Up: Instructions / Follow-Up Instructions / Follow-Up MEDICATION CHANGES: Okay to restart Wellbutrin at your home dose of 300 mg from tomorrow FOLLOW UP 1. Follow up with Dr Colunga 04/27/17 at 10:45 AM Medication Reconciliation Continued Medications: Bupropion (Wellbutrin-Xl) 300 Mg Tabcr 300 MG PO DAILY Cyclosporine (Ophth) (Restasis) 0.05 % Emu 1 DROP OP Q12 Ergocalciferol (Vitamin D 15965 Unit) 50,000 Unit Cap 51539 UNIT PO WK Estrogens, Conjugated (Premarin) 0.45 Mg Tab 0.45 MG PO DAILY Fluoxetine (Prozac) 40 Mg Cap 40 MG PO DAILY Fluticasone Propionate (Nasal) (Flonase Allergy Relief) 50 Mcg/Act Spr 2 SPRAYS SATHYA DAILY Probiotic Product (Probiotic) 1 Cap Cap 1 CAP PO TIDM Sucralfate (Carafate) 1 Gm Tab 1 GM PO ACHS 4 TIMES DAILY BEFORE MEALS AND AT BEDTIME. Admission Information HPI (per Admitting provider): This is a 66yo F with a PMH of HLD, depression and vitamin D deficiency who presented to the ED with numbness, tingling and weakness in her R arm. Symptoms began while she was at work this AM around 0800 when typing at her desk When she got up to use the restroom, she noticed a similar sensation of numbness/ tinging in both of her legs below the knee but was still able to ambulate. Around this time, she also noticed a "dizziness" while walking as well as bilateral ringing of the ears and a "thickness of the tongue" that made it difficult to swallow. Of note, she states that she began experiencing difficulty "walking in a straight line" earlier this week, at which time she was also experiencing a 3-day headache. All other symptoms started this morning. By the time she was seen in the ED, all symptoms had resolved with the exception of intermittent numbness/tinging and a feeling of weakness in her R arm. No PMH of CVA, heart disease or migraines. Denies any confusion, headache , LOC, seizure, syncopal episodes, loss of balance, speech problems, visual disturbance, tinnitus, CP, dyspnea or nausea/vomiting at this time. Patient notes that she has been experiencing intermittent episodes of diarrhea for the past 2 weeks that are associated with a few minutes of lower abdominal pain. She also has been taking a double dose of Wellbutrin (600mg/day) for the past 4 days by mistake. 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 ) Skin: normal color, warm/dry Lymphatic: no adenopathy Hospital Course Numbness/Tingling, Intermittent Likely secondary to C3-C4 degenerative changes noted co incidentally on MRI . Unlikely to be TIA or stroke -Work up- MRI Brain- No stroke, MRA Head/neck- no acute abnormalities/stenosis noted, TSH- Normal, Vitamin B12- normal; Echo- EF 60-65%, Gd I diastolic dysfunction, Mild RVH, No valvular pathology, Tele- no arrhythmias noted -No indication of starting ASA as clinically and on basis of history TIA unlikely, no cardiovascular risk factors present and MRI is negative for stroke -Follow up outpatient Dizziness Could be secondary to accidently taking Wellbutrin double dosing -600 mg x 4 days -Improved -Work up as above-negative Depression/Anxiety -Wellbutrin to be restarted from tomorrow at original dose 300 mg DVT ppx Lovenox FULL CODE DISPOSITION Okay to discharge home today Discussed results with patient/daughter Total time spent on discharge = 28 minutes This includes examination of the patient, discharge planning, medication reconciliation, and communication with other providers. Discharge Instructions Discharge Goals Goal(s): Therapeutic intervention Activity Recommendations Activity Limitations: resume your previous activity (as tolerated) . Instructions / Follow-Up Instructions / Follow-Up MEDICATION CHANGES: Okay to restart Wellbutrin at your home dose of 300 mg from tomorrow FOLLOW UP 1. Follow up with Dr Colunga 04/27/17 at 10:45 AM Current Hospital Diet Patient's current hospital diet: AHA Diet (Heart Healthy) Discharge Diet Recommended Diet: AHA Diet (Heart Healthy) Pending Studies Studies pending at discharge: no Laboratory Results Hemoglobin A1c Test 04/23/17 11:18 Range/Units Estimated Average Glucose 114 mg/dl Hemoglobin A1c 5.6 4.5-5.6 % Lipid Panel Test 04/24/17 05:50 Range/Units Triglycerides Level 273 H 0-150 mg/dl Cholesterol Level 210 H 0-200 mg/dl HDL Cholesterol 48 mg/dl Cholesterol/HDL Ratio 4.4 LDL Cholesterol, Calculated 107 mg/dl Medical Emergencies . Who to Call and When: Medical Emergencies: If at any time you feel your situation is an emergency, please call 911 immediately. . Non-Emergent Contact Non-Emergency issues call your: Primary Care Provider . . "Provider Documentation" section prepared by Nika Fry. . VTE Core Measure Inpt VTE Proph given/why not?: Enoxaparin (Lovenox)SQ
== END 2017-04-24 14:25 | disposition home or self-care (01) | DRG 552 ==
LOC: C.EDB 10:39 → ENRESERV 12:50 → C.2T 13:25 → OBSVTOIN 18:52
PROVIDERS: ADMIT Family Medicine; ATTEND Family Medicine
DX: M46.92 Unspecified inflammatory spondylopathy, cervical region (principal); R20.0 Anesthesia of skin; T50.905A Adverse effect of unspecified drugs, medicaments and biological substances, initial encounter; R42 Dizziness and giddiness; F41.9 Anxiety disorder, unspecified; F32.9 Major depressive disorder, single episode, unspecified; F17.210 Nicotine dependence, cigarettes, uncomplicated; Z23 Encounter for immunization; E55.9 Vitamin D deficiency, unspecified; Z79.899 Other long term (current) drug therapy; Z79.51 Long term (current) use of inhaled steroids; Z79.890 Hormone replacement therapy